=== PATIENT | female | born 1960 | race Caucasian/White ===

== ENCOUNTER → 2016-05-27 | Outpatient (CLI) | payer MEDICARE ==
[~2016-05-27] MED LIST: AMLODIPINE BESY10 MG PO; ASPIR 8181 MG PO; ASPIRIN325 MG PO; ASTEPRO205.5 MCG/; CHLORTHALIDONE25 MG PO; COZAAR 25MG TAB25 MG PO; FERROUS SULFAT325 M2 PO; HYDROCHLOROTH12.5 MG PO; HYDROCHLOROTHIA25 MG PO; LASIX40 MG PO; LIPITOR TAB 2020 MG PO; LISINOPRIL10 MG PO; LOPRESSOR 25 MG25 MG PO; LOPRESSOR50 MG PO; LORTAB 5-325 M1 EACH PO; MUCINEX600 MG PO; NORVASC 5 MG TAB5 MG PO; NOVOLIN 70100 UNIT/1 SQ; OMEPRAZOLE20 M1 PO; OMNICEF 25 M25 MG/ML PO; PLAVIX 75 MG TA75 MG PO; SANTYL OINT 3030 GM TOP; VISTARIL25 MG PO; ZYRTEC10 MG PO
== END ==
LOC: US 05-21 08:30
DX: R10.10 Upper abdominal pain, unspecified (principal); R93.2 Abnormal findings on diagnostic imaging of liver and biliary tract
CPT/HCPCS: 76705

== ENCOUNTER → 2016-06-02 | Outpatient (CLI) | payer MEDICARE ==
[2016-06-02 08:45] LABS: HEMOGLOBIN 10.9 gm/dl (12.3-15.3); RED BLOOD COUNT 3.7 M/UL (4.00-5.10); WHITE BLOOD COUNT 9.2 K/UL (4.5-11.0)
== END ==
LOC: LAB 07:47
PROVIDERS: Family Medicine
DX: D64.9 Anemia, unspecified (principal); E78.5 Hyperlipidemia, unspecified
CPT/HCPCS: 36415; 80053; 80061; 82607; 82728; 83540; 83550; 84443; 85025

== ENCOUNTER 2016-06-03 15:28 | Emergency (ER) | payer MEDICARE ==
[~2016-06-03 15:28] MED LIST changes: -AMLODIPINE BESY10 MG PO; -ASPIRIN325 MG PO; -ASTEPRO205.5 MCG/; -CHLORTHALIDONE25 MG PO; -COZAAR 25MG TAB25 MG PO; -FERROUS SULFAT325 M2 PO; -HYDROCHLOROTH12.5 MG PO; -LASIX40 MG PO; -LOPRESSOR50 MG PO; -LORTAB 5-325 M1 EACH PO; -MUCINEX600 MG PO; -NORVASC 5 MG TAB5 MG PO; -PLAVIX 75 MG TA75 MG PO; -SANTYL OINT 3030 GM TOP; -VISTARIL25 MG PO; -ZYRTEC10 MG PO
[2016-10-01] MEDS ORDERED: HYDROCHLOROTHIA25 MG PO (02:49)
[2016-10-01] MEDS ORDERED: VISTARIL25 MG PO (02:50)
[2016-10-27] MEDS ORDERED: NORVASC 5 MG TAB5 MG PO (22:48)
[2016-10-27] MEDS ORDERED: ASPIRIN325 MG PO (22:52)
[2016-10-27] MEDS ORDERED: LASIX40 MG PO (22:52)
[2016-10-27] MEDS ORDERED: VISTARIL25 MG PO (22:53)
[2016-10-27] MEDS ORDERED: LISINOPRIL10 MG PO (22:53)
[2016-10-28] MEDS ORDERED: COZAAR 25MG TAB25 MG PO (15:13)
[2016-10-29] MEDS ORDERED: CHLORTHALIDONE25 MG PO (11:40)
[2016-11-20] MEDS ORDERED: PLAVIX 75 MG TA75 MG PO (00:30)
[2016-11-20] MEDS ORDERED: LIPITOR TAB 2020 MG PO (00:30)
[2016-11-20] MEDS ORDERED: LORTAB 5-325 M1 EACH PO (00:31)
== END 2016-06-03 18:13 | disposition left against medical advice (07) ==
LOC: ER1 15:28
DX: Z53.21 Procedure and treatment not carried out due to patient leaving prior to being seen by health care provider (principal)
CPT/HCPCS: 82962

== ENCOUNTER 2016-06-04 08:59 | Emergency (ER) | payer MEDICARE ==
[2016-06-04 10:02] LABS: HEMOGLOBIN 11.2 gm/dl (12.3-15.3); RED BLOOD COUNT 3.86 M/UL (4.00-5.10); WHITE BLOOD COUNT 10.4 K/UL (4.5-11.0)
[2016-10-01] MEDS ORDERED: HYDROCHLOROTHIA25 MG PO (02:49)
[2016-10-01] MEDS ORDERED: VISTARIL25 MG PO (02:50)
[2016-10-27] MEDS ORDERED: NORVASC 5 MG TAB5 MG PO (22:48)
[2016-10-27] MEDS ORDERED: LASIX40 MG PO (22:52)
[2016-10-27] MEDS ORDERED: ASPIRIN325 MG PO (22:52)
[2016-10-27] MEDS ORDERED: VISTARIL25 MG PO (22:53)
[2016-10-27] MEDS ORDERED: LISINOPRIL10 MG PO (22:53)
[2016-10-28] MEDS ORDERED: COZAAR 25MG TAB25 MG PO (15:13)
[2016-10-29] MEDS ORDERED: CHLORTHALIDONE25 MG PO (11:40)
[2016-11-20] MEDS ORDERED: LIPITOR TAB 2020 MG PO (00:30)
[2016-11-20] MEDS ORDERED: PLAVIX 75 MG TA75 MG PO (00:30)
[2016-11-20] MEDS ORDERED: LORTAB 5-325 M1 EACH PO (00:31)
== END 2016-06-04 15:35 | disposition home or self-care (01) ==
LOC: ER1 08:59
PROVIDERS: Physician Assistant
DX: R10.12 Left upper quadrant pain (principal); E11.9 Type 2 diabetes mellitus without complications; I10 Essential (primary) hypertension; K74.60 Unspecified cirrhosis of liver; Z90.49 Acquired absence of other specified parts of digestive tract
CPT/HCPCS: 36415; 80053; 81001; 82150; 83690; 84484; 85025; 93005; 96374; 96375; 99284; J2270; J2405

== ENCOUNTER → 2016-06-16 | Outpatient (CLI) | payer MEDICARE ==
[~2016-06-16] MED LIST changes: +AMLODIPINE BESY10 MG PO; +ASPIRIN325 MG PO; +ASTEPRO205.5 MCG/; +CHLORTHALIDONE25 MG PO; +COZAAR 25MG TAB25 MG PO; +FERROUS SULFAT325 M2 PO; +HYDROCHLOROTH12.5 MG PO; +LASIX40 MG PO; +LOPRESSOR50 MG PO; +LORTAB 5-325 M1 EACH PO; +MUCINEX600 MG PO; +NORVASC 5 MG TAB5 MG PO; +PLAVIX 75 MG TA75 MG PO; +SANTYL OINT 3030 GM TOP; +VISTARIL25 MG PO; +ZYRTEC10 MG PO
== END ==
LOC: US 06-12 10:00
PROVIDERS: Internal Medicine Nephrology
DX: R31.29 Other microscopic hematuria (principal); R94.4 Abnormal results of kidney function studies; N13.30 Unspecified hydronephrosis
CPT/HCPCS: 36415; 80048; 81001; 87086

== ENCOUNTER → 2016-07-07 | Outpatient (CLI) | payer MEDICARE ==
[2016-07-07 09:47] LABS: HEMOGLOBIN 10.1 gm/dl (12.3-15.3); RED BLOOD COUNT 3.52 M/UL (4.00-5.10); WHITE BLOOD COUNT 7.3 K/UL (4.5-11.0)
== END ==
LOC: LAB 08:43
PROVIDERS: Family Medicine
DX: N18.3 Chronic kidney disease, stage 3 (moderate) (principal); D64.9 Anemia, unspecified
CPT/HCPCS: 36415; 80048; 80061; 82728; 83540; 83550; 84443; 85025

== ENCOUNTER → 2016-07-15 | Outpatient (CLI) | payer MEDICARE | LOC: LAB 12:09 | PROVIDERS: Family Medicine | DX: I10 Essential (primary) hypertension (principal) | CPT/HCPCS: 36415; 80048 ==

== ENCOUNTER → 2016-07-28 | Outpatient (CLI) | payer MEDICARE | LOC: LAB 08:55 | PROVIDERS: Family Medicine | DX: E87.5 Hyperkalemia (principal) | CPT/HCPCS: 36415; 80048; 84100; 84550 ==

== ENCOUNTER 2016-08-07 16:37 | Inpatient (IN) | payer MEDICARE ==
[~2016-08-07] VITALS: Ht 175.3 cm; Wt 88.0 kg
[~2016-08-07 16:37] MED LIST changes: -AMLODIPINE BESY10 MG PO; -ASPIRIN325 MG PO; -ASTEPRO205.5 MCG/; -CHLORTHALIDONE25 MG PO; -COZAAR 25MG TAB25 MG PO; -FERROUS SULFAT325 M2 PO; -HYDROCHLOROTH12.5 MG PO; -LASIX40 MG PO; -LOPRESSOR50 MG PO; -LORTAB 5-325 M1 EACH PO; -MUCINEX600 MG PO; -NORVASC 5 MG TAB5 MG PO; -PLAVIX 75 MG TA75 MG PO; -SANTYL OINT 3030 GM TOP; -VISTARIL25 MG PO; -ZYRTEC10 MG PO
[2016-08-07 17:42] LABS: HEMOGLOBIN 10.5 gm/dl (12.3-15.3); RED BLOOD COUNT 3.64 M/UL (4.00-5.10); WHITE BLOOD COUNT 14.1 K/UL (4.5-11.0)
[2016-08-08] MEDS ORDERED: AMLODIPINE BESY10 MG PO (03:00)
[2016-08-08] MEDS ORDERED: SANTYL OINT 3030 GM TOP (03:01)
[2016-08-08] MEDS ORDERED: ASTEPRO205.5 MCG/ (03:01)
[2016-08-08 04:45] LABS: HEMOGLOBIN 9.6 gm/dl (12.3-15.3); RED BLOOD COUNT 3.34 M/UL (4.00-5.10); WHITE BLOOD COUNT 10.9 K/UL (4.5-11.0)
[2016-08-09 05:42] LABS: HEMOGLOBIN 8.9 gm/dl (12.3-15.3); RED BLOOD COUNT 3.12 M/UL (4.00-5.10)
[2016-08-11] MEDS ORDERED: MUCINEX600 MG PO (17:35)
[2016-08-11] MEDS ORDERED: HYDROCHLOROTH12.5 MG PO (17:36)
[2016-08-11] MEDS ORDERED: LOPRESSOR50 MG PO (17:37)
[2016-10-01] MEDS ORDERED: HYDROCHLOROTHIA25 MG PO (02:49)
[2016-10-01] MEDS ORDERED: VISTARIL25 MG PO (02:50)
[2016-10-27] MEDS ORDERED: NORVASC 5 MG TAB5 MG PO (22:48)
[2016-10-27] MEDS ORDERED: LASIX40 MG PO (22:52)
[2016-10-27] MEDS ORDERED: ASPIRIN325 MG PO (22:52)
[2016-10-27] MEDS ORDERED: VISTARIL25 MG PO (22:53)
[2016-10-27] MEDS ORDERED: LISINOPRIL10 MG PO (22:53)
[2016-10-28] MEDS ORDERED: COZAAR 25MG TAB25 MG PO (15:13)
[2016-10-29] MEDS ORDERED: CHLORTHALIDONE25 MG PO (11:40)
[2016-11-20] MEDS ORDERED: LIPITOR TAB 2020 MG PO (00:30)
[2016-11-20] MEDS ORDERED: PLAVIX 75 MG TA75 MG PO (00:30)
[2016-11-20] MEDS ORDERED: LORTAB 5-325 M1 EACH PO (00:31)
== END 2016-08-11 18:05 | disposition home or self-care (01) | DRG 203 ==
LOC: ER1 16:37 → M/S 19:22 → ZEROF 19:22 → M/S 21:03
PROVIDERS: Hospitalist; Internal Medicine; Specialist/Technologist Athletic Trainer; ADMIT Family Medicine
DX: J20.9 Acute bronchitis, unspecified (principal); E11.65 Type 2 diabetes mellitus with hyperglycemia; R60.9 Edema, unspecified; E78.5 Hyperlipidemia, unspecified; K70.30 Alcoholic cirrhosis of liver without ascites; E66.01 Morbid (severe) obesity due to excess calories; M94.0 Chondrocostal junction syndrome [Tietze]; I12.9 Hypertensive chronic kidney disease with stage 1 through stage 4 chronic kidney disease, or unspecified chronic kidney disease; E11.22 Type 2 diabetes mellitus with diabetic chronic kidney disease; N18.9 Chronic kidney disease, unspecified; D64.9 Anemia, unspecified; T38.0X5A Adverse effect of glucocorticoids and synthetic analogues, initial encounter; K59.00 Constipation, unspecified; Z87.891 Personal history of nicotine dependence; Z88.8 Allergy status to other drugs, medicaments and biological substances; Z91.041 Radiographic dye allergy status; Z79.4 Long term (current) use of insulin; Z80.9 Family history of malignant neoplasm, unspecified; Z68.28 Body mass index [BMI] 28.0-28.9, adult; Z79.82 Long term (current) use of aspirin
CPT/HCPCS: 36415; 71020; 74000; 80048; 80053; 80061; 82550; 82553; 82962; 83036; 83690; 83735; 83874; 84436; 84443; 84484; 85025; 85379; 87278; 93005; 94640; 94664; 99285; G0378; J0696; J1650; J2270; J2405; J7030; J7050

== ENCOUNTER 2016-08-12 05:08 | Inpatient (IN) | payer MEDICARE ==
[~2016-08-12] VITALS: Ht 175.3 cm; Wt 88.0 kg
[~2016-08-12 05:08] MED LIST changes: +AMLODIPINE BESY10 MG PO; +ASTEPRO205.5 MCG/; +HYDROCHLOROTH12.5 MG PO; +LOPRESSOR50 MG PO; +MUCINEX600 MG PO; +SANTYL OINT 3030 GM TOP
[2016-08-12 07:16] LABS: RED BLOOD COUNT 3.5 M/UL (4.00-5.10); WHITE BLOOD COUNT 8.5 K/UL (4.5-11.0)
[2016-08-13 04:30] LABS: HEMOGLOBIN 9.2 gm/dl (12.3-15.3); RED BLOOD COUNT 3.25 M/UL (4.00-5.10); WHITE BLOOD COUNT 7.8 K/UL (4.5-11.0)
[2016-08-14 04:23] LABS: HEMOGLOBIN 8.5 gm/dl (12.3-15.3); RED BLOOD COUNT 3.02 M/UL (4.00-5.10); WHITE BLOOD COUNT 7.8 K/UL (4.5-11.0)
[2016-08-14] MEDS ORDERED: LASIX40 MG PO (11:13)
[2016-08-14] MEDS ORDERED: FERROUS SULFAT325 M2 PO (11:14)
[2016-08-14] MEDS ORDERED: ZYRTEC10 MG PO (11:17)
[2016-10-01] MEDS ORDERED: HYDROCHLOROTHIA25 MG PO (02:49)
[2016-10-01] MEDS ORDERED: VISTARIL25 MG PO (02:50)
[2016-10-27] MEDS ORDERED: NORVASC 5 MG TAB5 MG PO (22:48)
[2016-10-27] MEDS ORDERED: ASPIRIN325 MG PO (22:52)
[2016-10-27] MEDS ORDERED: LASIX40 MG PO (22:52)
[2016-10-27] MEDS ORDERED: VISTARIL25 MG PO (22:53)
[2016-10-27] MEDS ORDERED: LISINOPRIL10 MG PO (22:53)
[2016-10-28] MEDS ORDERED: COZAAR 25MG TAB25 MG PO (15:13)
[2016-10-29] MEDS ORDERED: CHLORTHALIDONE25 MG PO (11:40)
[2016-11-20] MEDS ORDERED: LIPITOR TAB 2020 MG PO (00:30)
[2016-11-20] MEDS ORDERED: PLAVIX 75 MG TA75 MG PO (00:30)
[2016-11-20] MEDS ORDERED: LORTAB 5-325 M1 EACH PO (00:31)
== END 2016-08-14 11:30 | disposition home or self-care (01) | DRG 291 ==
LOC: ER1 05:08 → ZEROF 08:15 → MED SURG 4 16:30
PROVIDERS: Emergency Medicine; Physician Assistant Medical; ADMIT Internal Medicine Infectious Disease
DX: I13.0 Hypertensive heart and chronic kidney disease with heart failure and stage 1 through stage 4 chronic kidney disease, or unspecified chronic kidney disease (principal); I50.33 Acute on chronic diastolic (congestive) heart failure; E87.1 Hypo-osmolality and hyponatremia; N18.3 Chronic kidney disease, stage 3 (moderate); E11.22 Type 2 diabetes mellitus with diabetic chronic kidney disease; E11.65 Type 2 diabetes mellitus with hyperglycemia; F10.21 Alcohol dependence, in remission; K70.30 Alcoholic cirrhosis of liver without ascites; Z79.4 Long term (current) use of insulin; D50.9 Iron deficiency anemia, unspecified; Z88.8 Allergy status to other drugs, medicaments and biological substances; Z91.041 Radiographic dye allergy status; Z79.82 Long term (current) use of aspirin; Z79.899 Other long term (current) drug therapy; J30.2 Other seasonal allergic rhinitis
CPT/HCPCS: ECHO; 36415; 36600; 71010; 80048; 80053; 82550; 82553; 82803; 82962; 83605; 83735; 83874; 83880; 84484; 85025; 85027; 87040; 93306; 94664; 96374; 99285; J1940

== ENCOUNTER 2016-11-10 17:02 | Emergency (ER) | payer MEDICARE ==
[~2016-11-10 17:02] MED LIST changes: +ASPIRIN81 MG PO; +CHLORTHALIDONE25 MG PO; +COZAAR 25MG TAB25 MG PO; +FERROUS SULFAT325 M2 PO; +LASIX40 MG PO; +NORVASC 5 MG TAB5 MG PO; +VISTARIL25 MG PO; +ZYRTEC10 MG PO
[2016-11-10 17:45] LABS: HEMOGLOBIN 8.8 gm/dl (12.3-15.3); RED BLOOD COUNT 3.09 M/UL (4.00-5.10); WHITE BLOOD COUNT 6.9 K/UL (4.5-11.0)
== END 2016-11-10 20:28 | disposition left against medical advice (07) ==
LOC: ER1 17:02
PROVIDERS: Emergency Medicine
DX: R07.89 Other chest pain (principal); R11.0 Nausea; I11.0 Hypertensive heart disease with heart failure; I50.9 Heart failure, unspecified; I25.10 Atherosclerotic heart disease of native coronary artery without angina pectoris; E11.9 Type 2 diabetes mellitus without complications; Z88.8 Allergy status to other drugs, medicaments and biological substances; Z53.8 Procedure and treatment not carried out for other reasons
CPT/HCPCS: 36415; 80053; 82550; 82553; 83874; 84484; 85025; 93005; 94664; 99285